=== PATIENT | female | born 1990 | race Caucasian/White ===

== ENCOUNTER 2021-09-27 10:13 | Emergency (ER) | payer MEDICAID ==
[~2021-09-27] VITALS: Ht 170.1 cm; Wt 65.8 kg
[~2021-09-27 10:13] MED LIST: ANAPROX DS550 MG PO; BACTRIM DS 8001 TA1 PO; CIPROFLOXACIN500 MG PO; DARVOCET N 1001 TAB PO; FLEXERIL5 MG PO; LOMOTIL 0.025 M1 TA1 PO; MOTRIN800 MG PO; NKHM; PERCODAN 325 MG1 TA1 PO; PHENERGAN25 M1 PO; PNV-SELECT1 TAB PO; PYRIDIUM100 MG PO; SEPTRA DS 800 M1 TAB PO; TORADOL10 MG PO; VICODIN 5/500 505 MG PO; VICODIN 500 MG-1 TAB PO
[2021-09-27] MEDS ORDERED: BUPROPION XL300 MG PO ×2 (10:40→12:08)
[2021-09-27 10:56] LABS: BILIRUBIN Negative (Negative); BLOOD 3+ (Negative); CLARITY Clear (Clear); COLOR Yellow (Yellow); GLUCOSE Negative (Negative); KETONE Negative (Negative); LEUKO ESTERASE Trace (Negative); NITRITE Negative (Negative); PH 5.5 (4.5-8.0); SPECIFIC GRAVITY 1.005 (1.001-1.030)
[2021-09-27 10:58] LABS: BACTERIA TRACE; RBC 16-20 rbc/hpf (0-2)
== END 2021-09-27 12:24 | disposition home or self-care (01) ==
LOC: ED 10:13
PROVIDERS: Emergency Medicine
DX: O03.9 Complete or unspecified spontaneous abortion without complication (principal)

== ENCOUNTER 2022-02-28 20:55 | Emergency (ER) | payer MEDICAID ==
[~2022-02-28] VITALS: Ht 170.1 cm; Wt 61.2 kg
[~2022-02-28 20:55] MED LIST changes: +BUPROPION XL300 MG PO
== END 2022-03-01 00:14 | disposition left against medical advice (07) ==
LOC: ED 20:55
DX: B34.9 Viral infection, unspecified (principal); Z20.822 Contact with and (suspected) exposure to COVID-19; Z79.899 Other long term (current) drug therapy; Z88.0 Allergy status to penicillin

== ENCOUNTER 2022-03-04 09:32 | Emergency (ER) | payer MEDICAID ==
[~2022-03-04] VITALS: Ht 170.1 cm; Wt 61.2 kg
== END 2022-03-04 21:48 | disposition left against medical advice (07) ==
LOC: ED 09:32
DX: R04.0 Epistaxis (principal); Z53.21 Procedure and treatment not carried out due to patient leaving prior to being seen by health care provider

== ENCOUNTER 2023-01-14 14:57 | Emergency (ER) | payer OTHER ==
[~2023-01-14] VITALS: Ht 170.1 cm; Wt 83.9 kg
[2023-01-14] MEDS ORDERED: CYCLOBENZAPRINE10 MG PO (17:45)
[2023-01-14] MEDS ORDERED: PREDNISONE50 MG PO (17:45)
== END 2023-01-14 18:02 | disposition home or self-care (01) ==
LOC: ED 14:57
DX: S29.012A Strain of muscle and tendon of back wall of thorax, initial encounter (principal); V80.010A Animal-rider injured by fall from or being thrown from horse in noncollision accident, initial encounter; Y93.52 Activity, horseback riding; Y92.89 Other specified places as the place of occurrence of the external cause; Y99.8 Other external cause status; S40.011A Contusion of right shoulder, initial encounter; S10.93XA Contusion of unspecified part of neck, initial encounter; Z88.0 Allergy status to penicillin; Z88.1 Allergy status to other antibiotic agents; Z98.890 Other specified postprocedural states

== ENCOUNTER 2023-01-24 15:11 | Emergency (ER) | payer OTHER ==
[~2023-01-24] VITALS: Ht 167.6 cm; Wt 83.9 kg
[~2023-01-24 15:11] MED LIST changes: +CYCLOBENZAPRINE10 MG PO; +PREDNISONE50 MG PO
[2023-01-24] MEDS ORDERED: VALTREX1000 MG PO (16:00)
== END 2023-01-24 16:08 | disposition home or self-care (01) ==
LOC: ED 15:11
DX: B02.9 Zoster without complications (principal); J45.909 Unspecified asthma, uncomplicated; Z88.0 Allergy status to penicillin; Z88.1 Allergy status to other antibiotic agents; Z98.890 Other specified postprocedural states

== ENCOUNTER 2023-03-20 02:46 | Emergency (ER) | payer OTHER ==
[~2023-03-20] VITALS: Ht 167.6 cm; Wt 88.9 kg
[~2023-03-20 02:46] MED LIST changes: +VALTREX1000 MG PO
[2023-03-20 03:29] LABS: BASO % 0.5 % (0.0-1.0); BILIRUBIN Negative (Negative); BLOOD Negative (Negative); CLARITY Clear (Clear); COLOR Yellow (Yellow); EOS # 0.1 10*3/uL (0.0-0.4); EOS % 1.6 % (1.0-4.0); GLUCOSE Negative (Negative); HEMATOCRIT 41.5 % (37.0-47.0); KETONE Negative (Negative); LEUKO ESTERASE Negative (Negative); LYMPH % 24.9 % (27.0-41.0); MEAN CELL VOLUME 89.1 fl (81.0-99.0); MEAN CORPUSCULAR HGB CONC 32.5 g/dl (33.0-37.0); MEAN PLATELET VOLUME 10.8 fl (9.6-12.3); MONO # 0.5 10*3/uL (0.1-1.0); MONO % 6.7 % (3.0-9.0); NEUT # 5.3 10*3/uL (2.3-7.9); NEUT % 65.9 % (47.0-73.0); NITRITE Negative (Negative); PLATELET COUNT AUTOMATED 190 10*3/uL (130-400); RED BLOOD COUNT 4.66 10*6/uL (4.10-5.10); RED CELL DISTRI WIDTH 12.3 % (0-14.5); SPECIFIC GRAVITY >= 1.030 (1.001-1.030)
[2023-03-20 03:39] LABS: MUCOUS 2+; RBC 0-2 rbc/hpf (0-2)
[2023-03-20 03:50] LABS: ALKALINE PHOSPHATASE 67 U/L (46-116); BUN 13 mg/dl (9-23); CHLORIDE 103 mmol/L (98-107); LIPASE 28 U/L (12-53); POTASSIUM 3.7 mmol/L (3.4-5.1); SGPT/ALT 23 U/L (5-49); TOTAL PROTEIN 6.9 gm/dL (6.0-8.0)
[2023-03-20] MEDS ORDERED: MIRALAX POWDER17 G1 PO (06:58)
== END 2023-03-20 07:20 | disposition home or self-care (01) ==
LOC: ED 02:46
PROVIDERS: Internal Medicine
DX: K59.00 Constipation, unspecified (principal); E83.42 Hypomagnesemia; J45.909 Unspecified asthma, uncomplicated; Z88.0 Allergy status to penicillin; Z88.1 Allergy status to other antibiotic agents; Z98.890 Other specified postprocedural states

== ENCOUNTER 2023-08-30 18:03 | Emergency (ER) | payer SELFPAY ==
[~2023-08-30] VITALS: Ht 167.6 cm; Wt 91.6 kg
[~2023-08-30 18:03] MED LIST changes: +MIRALAX POWDER17 G1 PO
[2023-08-30 18:55] LABS: BILIRUBIN Negative (Negative); BLOOD Negative (Negative); CLARITY Clear (Clear); COLOR Yellow (Yellow); GLUCOSE Negative (Negative); KETONE Negative (Negative); LEUKO ESTERASE Negative (Negative); NITRITE Negative (Negative); PH 5.5 (4.5-8.0)
[2023-08-30 19:03] LABS: BACTERIA 2+
[2023-08-30] MEDS ORDERED: SEPTDS PO (19:18)
[2023-08-30] MEDS ORDERED: PYRIDIUM200 M1 PO (19:18)
[2023-08-30] MEDS ORDERED: Phenazopyridine Hydrochlorid2 100 MG TAB PO ONE (19:20)
[2023-08-30] MEDS ORDERED: Sulfamethoxazole/Trimethopri 1 TAB TAB PO ONE (19:20)
== END 2023-08-30 20:00 | disposition home or self-care (01) ==
LOC: ED 18:03
PROVIDERS: Emergency Medicine
DX: N39.0 Urinary tract infection, site not specified (principal); J45.909 Unspecified asthma, uncomplicated; Z88.0 Allergy status to penicillin; Z88.1 Allergy status to other antibiotic agents; Z98.890 Other specified postprocedural states

== ENCOUNTER 2023-09-10 04:58 | Emergency (ER) | payer SELFPAY ==
[~2023-09-10] VITALS: Ht 170.1 cm; Wt 79.4 kg
[~2023-09-10 04:58] MED LIST changes: +PYRIDIUM200 M1 PO; +SEPTDS PO
[2023-09-10] MEDS ORDERED: methylPREDNISolone sod succ 125 MG VIAL IM ONE (05:10)
[2023-09-10] MEDS ORDERED: PREDNISONE20 M1 PO (05:14)
[2023-09-10] MEDS ORDERED: diphenhydrAMINE hydrochloride 25 MG CAP PO ONE (05:20)
== END 2023-09-10 05:26 | disposition home or self-care (01) ==
LOC: ED 04:58
DX: T78.49XA Other allergy, initial encounter (principal); Z88.1 Allergy status to other antibiotic agents; Z88.0 Allergy status to penicillin; Z79.2 Long term (current) use of antibiotics; Z79.899 Other long term (current) drug therapy; X58.XXXA Exposure to other specified factors, initial encounter

== ENCOUNTER 2023-09-12 02:20 | Emergency (ER) | payer SELFPAY ==
[~2023-09-12] VITALS: Ht 167.6 cm; Wt 84.8 kg
[~2023-09-12 02:20] MED LIST changes: +PREDNISONE20 M1 PO
[2023-09-12] MEDS ORDERED: SODIUM CHLORIDE 0.9% 1,000 ML IV ONE (02:45)
[2023-09-12] MEDS ORDERED: Dexamethasone Sodium Phospha 20 MG/5 ML VIAL IV ONE (02:45)
[2023-09-12] MEDS ORDERED: FAMOTIDINE 50 ML IV ONE (02:45)
[2023-09-12 03:01] LABS: BASO % 0.1 % (0.0-1.0); EOS % 0.1 % (1.0-4.0); HEMATOCRIT 38.9 % (37.0-47.0); LYMPH # 2.1 10*3/uL (1.3-4.4); LYMPH % 19.2 % (27.0-41.0); MEAN CELL VOLUME 91.1 fl (81.0-99.0); MEAN CORPUSCULAR HGB 30.2 pg (27.0-31.0); MEAN CORPUSCULAR HGB CONC 33.2 g/dl (33.0-37.0); MEAN PLATELET VOLUME 10.6 fl (9.6-12.3); MONO # 0.6 10*3/uL (0.1-1.0); MONO % 5.2 % (3.0-9.0); NEUT # 8.3 10*3/uL (2.3-7.9); NEUT % 74.9 % (47.0-73.0); PLATELET COUNT AUTOMATED 173 10*3/uL (130-400); RED BLOOD COUNT 4.27 10*6/uL (4.10-5.10); RED CELL DISTRI WIDTH 12.9 % (0-14.5); WHITE BLOOD COUNT 11.1 10*3/uL (4.8-10.8)
[2023-09-12] MEDS ORDERED: EPINEPHrine Hydrochloride 1 MG/ML AMP IM ONE (03:20)
[2023-09-12 03:22] LABS: ALKALINE PHOSPHATASE 54 U/L (46-116); BUN 15 mg/dl (9-23); CHLORIDE 107 mmol/L (98-107); POTASSIUM 3.3 mmol/L (3.4-5.1); SGPT/ALT 29 U/L (5-49); TOTAL PROTEIN 6.5 gm/dL (6.0-8.0)
[2023-09-12] MEDS ORDERED: EPIPEN 2-P0.3 MG/0.3 IJ (04:01)
== END 2023-09-12 04:33 | disposition home or self-care (01) ==
LOC: ED 02:20
PROVIDERS: Internal Medicine
DX: T78.2XXA Anaphylactic shock, unspecified, initial encounter (principal); J45.909 Unspecified asthma, uncomplicated; Z88.1 Allergy status to other antibiotic agents; Z88.0 Allergy status to penicillin; Z98.890 Other specified postprocedural states

== ENCOUNTER 2023-11-03 03:17 | Emergency (ER) | payer MEDICAID ==
[~2023-11-03] VITALS: Ht 172.7 cm; Wt 95.3 kg
[~2023-11-03 03:17] MED LIST changes: +EPIPEN 2-P0.3 MG/0.3 IJ
[2023-11-03] MEDS ORDERED: Ondansetron Hydrochloride 4 MG TAB SL ONE (03:35)
[2023-11-03 03:42] LABS: BILIRUBIN Negative (Negative); BLOOD Trace-Intact (Negative); CLARITY Clear (Clear); COLOR Yellow (Yellow); GLUCOSE Negative (Negative); KETONE Negative (Negative); LEUKO ESTERASE Negative (Negative); NITRITE Negative (Negative); PH 6.5 (4.5-8.0); SPECIFIC GRAVITY <= 1.005 (1.001-1.030); UROBILINOGEN 0.2 E.U./dl (0.0-1.0)
[2023-11-03 03:45] LABS: BASO % 0.4 % (0.0-1.0); EOS # 0.1 10*3/uL (0.0-0.4); EOS % 1.7 % (1.0-4.0); HEMATOCRIT 40.3 % (37.0-47.0); LYMPH # 2.3 10*3/uL (1.3-4.4); LYMPH % 31.2 % (27.0-41.0); MEAN CELL VOLUME 88.6 fl (81.0-99.0); MEAN CORPUSCULAR HGB 29.7 pg (27.0-31.0); MEAN CORPUSCULAR HGB CONC 33.5 g/dl (33.0-37.0); MEAN PLATELET VOLUME 10.7 fl (9.6-12.3); MONO # 0.6 10*3/uL (0.1-1.0); MONO % 7.8 % (3.0-9.0); NEUT # 4.2 10*3/uL (2.3-7.9); NEUT % 58.6 % (47.0-73.0); PLATELET COUNT AUTOMATED 207 10*3/uL (130-400); RED BLOOD COUNT 4.55 10*6/uL (4.10-5.10); RED CELL DISTRI WIDTH 12.5 % (0-14.5); WHITE BLOOD COUNT 7.2 10*3/uL (4.8-10.8)
[2023-11-03 04:08] LABS: ALKALINE PHOSPHATASE 71 U/L (46-116); BUN 9 mg/dl (9-23); CHLORIDE 105 mmol/L (98-107); LIPASE 25 U/L (12-53); POTASSIUM 3.4 mmol/L (3.4-5.1); SGPT/ALT 26 U/L (5-49)
== END 2023-11-03 06:52 | disposition left against medical advice (07) ==
LOC: ED 03:17
PROVIDERS: Internal Medicine
DX: M54.50 Low back pain, unspecified (principal); R11.2 Nausea with vomiting, unspecified; J45.909 Unspecified asthma, uncomplicated; Z88.2 Allergy status to sulfonamides; Z88.1 Allergy status to other antibiotic agents; Z88.0 Allergy status to penicillin; Z98.890 Other specified postprocedural states; Z53.29 Procedure and treatment not carried out because of patient's decision for other reasons

== ENCOUNTER 2023-12-11 08:14 | Emergency (ER) | payer MEDICAID ==
[~2023-12-11] VITALS: Ht 170.1 cm; Wt 83.9 kg
[2023-12-11] MEDS ORDERED: VANCOMYCIN HCL125 MG PO (09:12)
== END 2023-12-11 09:22 | disposition home or self-care (01) ==
LOC: ED 08:14
DX: A04.72 Enterocolitis due to Clostridium difficile, not specified as recurrent (principal); J45.909 Unspecified asthma, uncomplicated; F17.200 Nicotine dependence, unspecified, uncomplicated; Z88.2 Allergy status to sulfonamides; Z88.1 Allergy status to other antibiotic agents; Z88.0 Allergy status to penicillin; Z98.890 Other specified postprocedural states

== ENCOUNTER 2024-01-06 21:32 | Emergency (ER) | payer MEDICAID ==
[~2024-01-06] VITALS: Ht 167.6 cm; Wt 86.6 kg
[~2024-01-06 21:32] MED LIST changes: +VANCOMYCIN HCL125 MG PO
[2024-01-06] MEDS ORDERED: VYVANSE30 MG PO (21:47)
[2024-01-06 22:31] LABS: BASO % 0.2 % (0.0-1.0); EOS # 0.1 10*3/uL (0.0-0.4); EOS % 0.4 % (1.0-4.0); LYMPH # 1.3 10*3/uL (1.3-4.4); LYMPH % 8.9 % (27.0-41.0); MEAN CORPUSCULAR HGB 29.6 pg (27.0-31.0); MEAN CORPUSCULAR HGB CONC 33.7 g/dl (33.0-37.0); MEAN PLATELET VOLUME 11.1 fl (9.6-12.3); MONO # 0.8 10*3/uL (0.1-1.0); MONO % 5.7 % (3.0-9.0); NEUT # 12.2 10*3/uL (2.3-7.9); NEUT % 84.4 % (47.0-73.0); PLATELET COUNT AUTOMATED 178 10*3/uL (130-400); RED BLOOD COUNT 4.66 10*6/uL (4.10-5.10); RED CELL DISTRI WIDTH 12.1 % (0-14.5); WHITE BLOOD COUNT 14.4 10*3/uL (4.8-10.8)
[2024-01-06] MEDS ORDERED: SODIUM CHLORIDE 0.9% 1,000 ML IV ONE (22:45)
[2024-01-06 22:53] LABS: BUN 7 mg/dl (9-23); CHLORIDE 103 mmol/L (98-107); POTASSIUM 3.6 mmol/L (3.4-5.1)
[2024-01-07] MEDS ORDERED: VANCOMYCIN HCL 125 MG CAPSULE PO ONE (00:20)
[2024-01-07] MEDS ORDERED: Ondansetron Hydrochloride 4 MG/2 ML VIAL IV ONE (01:45)
[2024-01-07] MEDS ORDERED: HYDROmorphONE Hydrochloride 0.5 MG/0.5 ML SYRINGE IV ONE (01:45)
== END 2024-01-07 02:24 | disposition home or self-care (01) ==
LOC: ED 21:32
PROVIDERS: Internal Medicine
DX: A41.9 Sepsis, unspecified organism (principal); D72.89 Other specified disorders of white blood cells; A04.72 Enterocolitis due to Clostridium difficile, not specified as recurrent; Z88.2 Allergy status to sulfonamides; Z88.1 Allergy status to other antibiotic agents; Z88.0 Allergy status to penicillin; Z79.899 Other long term (current) drug therapy

== ENCOUNTER 2024-05-28 02:55 | Emergency (ER) | payer MEDICAID ==
[~2024-05-28] VITALS: Ht 167.6 cm; Wt 83.9 kg
[~2024-05-28 02:55] MED LIST changes: +VYVANSE30 MG PO
[2024-05-28] MEDS ORDERED: ACETAMINOPHEN 325 MG TAB PO ONE (03:25)
[2024-05-28] MEDS ORDERED: Dexamethasone Sodium Phospha 20 MG/5 ML VIAL IM ONE (05:35)
[2024-05-28] MEDS ORDERED: CEFPODOXIME PR200 M1 PO (05:36)
[2024-05-28] MEDS ORDERED: MEDROL DOSEPAK4 MG PO (05:36)
[2024-05-29] MEDS ORDERED: CEFPODOXIME PR200 M1 PO (12:04)
== END 2024-05-28 05:41 | disposition home or self-care (01) ==
LOC: ED 02:55
DX: J32.9 Chronic sinusitis, unspecified (principal); Z20.822 Contact with and (suspected) exposure to COVID-19; J45.909 Unspecified asthma, uncomplicated; F17.210 Nicotine dependence, cigarettes, uncomplicated; Z88.2 Allergy status to sulfonamides; Z88.1 Allergy status to other antibiotic agents; Z88.0 Allergy status to penicillin; Z98.890 Other specified postprocedural states